=== PATIENT | female | born 2000 | race Caucasian/White ===

== ENCOUNTER 2020-07-28 03:14 | Emergency (ER) | payer MEDICAID ==
[2020-07-28] MEDS ORDERED: NORMAL SALINE 1000 ML 1,000 ML IV ONE (04:19)
[2020-07-28] MEDS ORDERED: ONDANSETRON HCL INJ/PF 4 MG/2 ML SDV IV ONE (04:19)
--- NOTE | 2020-07-28 04:22 | ER Document Report ---
HPI - HPI Time Seen by Provider: 07/28/20 03:41 Pain Level: 1 Notes: Patient is an otherwise healthy 20-year-old female presenting to the emergency department chief complaint of vomiting that began a few hours prior to arrival. Patient reports she just finished a course of Flagyl for bacterial vaginosis. She states soon as she took her last dose she had an alcoholic beverage. She states within an hour and a half she began vomiting. She states she was not sick prior to this. She has had no fever, chills, abdominal pain, diarrhea. She states that her symptoms of her bacterial vaginosis have improved. - ROS Systems Reviewed and Negative: Yes All other systems reviewed and negative - GASTROINTESTINAL Gastrointestinal: REPORTS: Nausea, Patient vomiting - REPRODUCTIVE LMP: 06/1520 Reproductive: DENIES: : Past Medical History - General Information source: Patient - Social History Smoking Status: Current Every Day Smoker Frequency of alcohol use: marsha arthur @1900 Family History: Reviewed & Not Pertinent - Medical History Medical History: Negative Surgical Hx: Negative Vertical Provider Document - HEENT HEENT: Atraumatic, Normocephalic - NECK Neck: Normal Inspection, Supple - RESPIRATORY Respiratory: Breath Sounds Normal, No Respiratory Distress - CARDIOVASCULAR Cardiovascular: Regular Rate, Regular Rhythm - GI/ABDOMEN Gastrointestinal: Abdomen Soft, Abdomen Non-Tender, Normal Bowel Sounds - REPRODUCTIVE Female Genitalia: Normal Inspection - BACK Back: Normal Inspection - NEURO Level of Consciousness: Awake, Alert, Appropriate - DERM Adult Front & Back Diagram: 1 - circular, blanchible erythemous rash Course - Re-evaluation Re-evalutation: 07/28/20 04:27 Patient has not had any episodes of vomiting since arrival to the emergency department. She actually states she feels much better. She has a liter of IV fluids running. She has been given Zofran 4 mg. On physical exam I did notice a rash to her abdomen, patient reports this rash has been there for 1 year. She has not had it looked at by any medical provider. She states occasionally it itches. She states it started on her back and is now on her abdomen. She states that a few time she has had peterson on her arms as well. Patient has otherwise been well, she has had no fever, chills. Likely her vomiting is secondary to the recent dose of Flagyl. Patient counseled to not take any more alcohol until she has been off of the medication for at least 48 to 72 hours. Patient verbalized understanding and agreement with same. Will give patient a 5-day course of steroids to help with the rash. She will need to follow-up with primary care for this. - Vital Signs Vital signs: Temp Pulse Resp BP Pulse Ox 97.9 F 84 16 121/79 98 07/28/20 03:26 07/28/20 03:26 07/28/20 03:26 07/28/20 03:26 07/28/20 03:26 Discharge - Discharge Clinical Impression: Medication side effect, Rash Vomiting Qualifiers: Vomiting type: unspecified Vomiting Intractability: unspecified Nausea presence: with nausea Qualified Code(s): R11.2 - Nausea with vomiting, unspecified Condition: Stable Disposition: HOME, SELF-CARE Additional Instructions: You were given IV fluids and Zofran in the emergency department. Please increase your fluid intake. No alcohol for at least the next 48 to 72 hours. Call Medicaid to find out who your primary care provider assigned he was, call them to schedule a follow-up appointment regarding your rash. We will start you on a 5-day course of prednisone to see if this will help. You may also take 20 mg of Pepcid twice daily for the next 5 days, you can purchase this [id number]. Return to the emergency department with new or worsening concerns to include development of abdominal pain accompanied by persistent vomiting or fever greater than 101. Prescriptions: Prednisone [Deltasone 20 mg Tablet] 3 tab PO DAILY 5 Days #15 tablet Ondansetron [Zofran Odt 4 mg Tablet] 1 - 2 tab PO Q4H PRN #15 tab.rapdis PRN Reason: For Nausea/Vomiting Forms: Return to Work
[2020-07-28 04:48] VITALS: BP 120/74
== END 2020-07-28 04:46 | disposition home or self-care (01) ==
LOC: ER 03:14
DX: R21 Rash and other nonspecific skin eruption (principal); T37.3X1A Poisoning by other antiprotozoal drugs, accidental (unintentional), initial encounter; R11.2 Nausea with vomiting, unspecified; F17.200 Nicotine dependence, unspecified, uncomplicated; X58.XXXA Exposure to other specified factors, initial encounter
CPT/HCPCS: 99284; 96361; 96374; J2405; J7030

== ENCOUNTER 2020-10-31 21:49 | Emergency (ER) | payer MEDICAID ==
[2020-10-31 21:58] VITALS: BP 127/65
[2020-10-31] MEDS ORDERED: CLINDAMYCIN HCL 150 MG CAPSULE PO ONE (22:05)
[2020-10-31] MEDS ORDERED: KETOROLAC TROMETHAMINE 60 MG/2 ML SDV IM ONE (22:05)
--- NOTE | 2020-10-31 22:10 | ER Document Report ---
ED Oral Problem - General Chief Complaint: Toothache Stated Complaint: MOUTH PAIN Time Seen by Provider: 10/31/20 21:56 Mode of Arrival: Ambulatory Information source: Patient - HPI Patient complains to provider of: Jaw pain, Toothache Onset: Last week Quality of pain: Achy, Throbbing Severity: Moderate Pain Level: 3 Context: denies: Recent antibiotic use, Recent yeast infection Associated symptoms: Toothache Relieved by: Nothing Similar symptoms previously: Yes Recently seen / treated by doctor/dentist: No - Related Data Allergies/Adverse Reactions: lurasidone [From Latuda] Allergy (Verified 07/28/20 03:28) Penicillins Allergy (Verified 07/28/20 03:28) Past Medical History - General Information source: Patient - Social History Smoking Status: Current Every Day Smoker Cigarette use (# per day): Yes - Half pack Chew tobacco use (# tins/day): No Smoking Education Provided: No Frequency of alcohol use: None Drug Abuse: None Lives with: Family Family History: Reviewed & Not Pertinent Review of Systems - Review of Systems Constitutional: No symptoms reported EENT: Dental problem Cardiovascular: No symptoms reported Respiratory: No symptoms reported Gastrointestinal: No symptoms reported Genitourinary: No symptoms reported Female Genitourinary: No symptoms reported Musculoskeletal: No symptoms reported Skin: No symptoms reported Hematologic/Lymphatic: No symptoms reported Neurological/Psychological: No symptoms reported -: Yes All other systems reviewed and negative Physical Exam - Vital signs Vitals: Temp Pulse Resp BP Pulse Ox 98.7 F 88 14 127/65 H 97 10/31/20 09:56 10/31/20 09:56 10/31/20 09:56 10/31/20 09:56 10/31/20 09:56 Interpretation: Normal - Notes Notes: PHYSICAL EXAMINATION: GENERAL: Well-appearing, well-nourished and in no acute distress. HEAD: Atraumatic, normocephalic. Examination patient's external features did not show any outward signs of edema or swelling. There is no erythema noted on the facial aspect of the right mandible and jaw area. EYES: Pupils equal round and reactive to light, extraocular movements intact, conjunctiva are normal. ENT: Examination patient's oral cavity primary area of concern shows that she has a fractured back right upper molar and the area of concern is tooth #4. There is erythema around the gum the tooth actually is in good shape there is no sign of fracture of the enamel. No sign of overt abscess however does appear to be moderate erythema without any fluctuance. NECK: Normal range of motion, supple without lymphadenopathy LUNGS: Breath sounds clear to auscultation bilaterally and equal. No wheezes rales or rhonchi. HEART: Regular rate and rhythm without murmurs NEUROLOGICAL: Normal speech, normal gait. Normal sensory, motor exams PSYCH: Normal mood, normal affect. SKIN: Warm, Dry, normal turgor, no rashes or lesions noted. Course - Re-evaluation Re-evalutation: 10/31/20 22:10 Patient states she is got an appointment with the dentist for extractions of her wisdom teeth on November 23. She will keep that appointment. We will place her on clindamycin since she has an allergy to penicillins. Patient understands she can return to ER if she has any concerns or problems. - Vital Signs Vital signs: Temp Pulse Resp BP Pulse Ox 98.7 F 88 14 127/65 H 97 10/31/20 09:56 10/31/20 09:56 10/31/20 09:56 10/31/20 09:56 10/31/20 09:56 - Laboratory Results Critical Laboratory Results Reviewed: No Critical Results - Radiology Results Critical Radiology Results Reviewed: No Critical Results Discharge - Discharge Clinical Impression: Pain, dental, Dental infection Condition: Stable Disposition: HOME, SELF-CARE Instructions: Clindamycin ([facility]), Dental Infection or Abscess ([facility]), Toothache ([facility]) Additional Instructions: You can continue to use warm salt swishes. Contact the dentist to follow-up with them as soon as possible. Prescriptions: Clindamycin HCl 300 mg PO Q6 7 Days #28 capsule Fluconazole [Diflucan] 150 mg PO ONCE #1 tablet Ibuprofen [Ibu] 800 mg PO TID PRN #21 tablet PRN Reason: Forms: Smoking Cessation Education Referrals: BELINDA CLARK MD [[facility]ON[facility]] - Follow up as needed
== END 2020-10-31 22:30 | disposition home or self-care (01) ==
LOC: ER 21:49
DX: K04.7 Periapical abscess without sinus (principal); K08.89 Other specified disorders of teeth and supporting structures; F17.210 Nicotine dependence, cigarettes, uncomplicated; Z88.8 Allergy status to other drugs, medicaments and biological substances; Z88.0 Allergy status to penicillin
CPT/HCPCS: 99284; 96372; J3490; J1885

== ENCOUNTER 2020-11-07 23:33 | Emergency (ER) | payer MEDICAID ==
[2020-11-07 23:39] VITALS: BP 131/77
[2020-11-08] MEDS ORDERED: ACETAMINOPHEN 325 MG TABLET PO ONE (01:24)
== END 2020-11-08 04:20 | disposition left against medical advice (07) ==
LOC: ER 23:33
DX: Z53.21 Procedure and treatment not carried out due to patient leaving prior to being seen by health care provider (principal)

== ENCOUNTER 2020-11-08 06:46 | Emergency (ER) | payer MEDICAID ==
[2020-11-08] MEDS ORDERED: ACETAMINOPHEN 325 MG TABLET PO ONE (06:56)
[2020-11-08] MEDS ORDERED: ACETAMINOPHEN 325 MG TABLET ONE (06:57)
[2020-11-08 07:01] VITALS: BP 124/74
== END 2020-11-08 09:55 | disposition left against medical advice (07) ==
LOC: ER 06:46
DX: Z53.21 Procedure and treatment not carried out due to patient leaving prior to being seen by health care provider (principal)